=== PATIENT | female | born 1965 | race Caucasian/White ===

== ENCOUNTER 2016-09-02 09:58 | Day surgery (SDC) | payer BC ==
[2016-08-31 14:13] VITALS: BMI 29.7
[~2016-09-02 09:58] MED LIST: LACTATED RINGERS 1,000 ML IV SCH
[2016-09-02 10:56] VITALS: RESP 16; TEMP 98
[2016-09-02] MEDS ORDERED: LIDOCAINE 1% 20 ML VIAL (10MG/ML) FOR IV START INTRADERMA ONE (11:07)
[2016-09-02] MEDS ORDERED: PROPOFOL 10 MG/ML 20 ML VIAL IV ONE (11:39)
[2016-09-02] MEDS ORDERED: LIDOCAINE 1% INJ 10MG/ML (20 ML MDV) ONE (11:39)
[2016-09-02 12:18] VITALS: BP 118/80; PULSE 64
--- NOTE | 2016-09-02 12:18 | P.PCN ---
Date of Procedure: 09/02/16 Procedure(s) Performed: Procedure: Total colonoscopy. Preoperative diagnosis: Screening for neoplasia. Postoperative diagnosis: Exam within normal limits. Preparation: HalfLytely prep. Sedation: Was provided by anesthesia. Brief clinical history: The patient is a 51-year-old female who is referred for this evaluation for screening for neoplasia age being her risk factor. She has no significant abdominal symptoms, bleeding or anemia. She does have some tendency to constipation. No family history of colon cancer. This would be her first colonoscopy. Procedure: With the patient on her left lateral decubitus position and after informed consent and adequate sedation, the perianal area was inspected and it did not show any fissures or fistulas. There were no masses felt on digital rectal examination. The Olympus CFQ 160L video colonoscope was then inserted in the rectum in the usual fashion and advanced to the cecum. The mucosa appeared healthy. No polyps or tumors were seen or any obvious diverticular disease or other pathology. I retroflexed the endoscope in the rectum before the endoscope was withdrawn. The patient tolerated the procedure well. Plan: The patient was reassured. Discussed dietary measures regarding the occasional constipation issues she is having. In the absence of family history of colon cancer or finding of polyps today, I recommended repeat exam in 10 years. She will follow-up with you as planned.
== END 2016-09-02 12:36 | disposition home or self-care (01) ==
LOC: ORWHC2ENDO 09:58
DX: Z12.11 Encounter for screening for malignant neoplasm of colon (principal); K59.00 Constipation, unspecified
CPT/HCPCS: J2001; J2704; G0121; 45378

== ENCOUNTER → 2020-10-23 | Outpatient (CLI) | payer BC ==
--- NOTE | 2020-10-27 09:55 | MM ---
Reason for exam: screening (asymptomatic). Last mammogram was performed 5 years and 6 months ago. History: Patient is postmenopausal and had first child at age 34. Physical Findings: A clinical breast exam by your physician is recommended on an annual basis and results should be correlated with mammographic findings. MG 3D Screening Mammo W/Cad Bilateral CC and MLO view(s) were taken. Prior study comparison: May 08, 2015, bilateral MG screening mammo w CAD. August 22, 2012, bilateral digital screening mammo w/CAD. There are scattered fibroglandular densities. ASSESSMENT: Benign, BI-RAD 2 RECOMMENDATION: Routine screening mammogram of both breasts in 1 year.
== END | disposition home or self-care (01) ==
LOC: RADMAMWWP 13:36
PROVIDERS: ATTEND Internal Medicine Geriatric Medicine
DX: Z12.31 Encounter for screening mammogram for malignant neoplasm of breast (principal); Z78.0 Asymptomatic menopausal state
CPT/HCPCS: 77063; 77067

== ENCOUNTER → 2024-06-20 | Outpatient (CLI) | payer BC ==
--- NOTE | 2024-06-21 09:41 | MM ---
Reason for Exam: Screening (asymptomatic). Last mammogram was performed 3 year(s) and 8 month(s) ago. Patient History: Menarche at age 14. First Full-Term at age 34. Late child-bearing (after 30). Postmenopausal. Risk Values: Erum 5 year model risk: 1.7%. NCI Lifetime model risk: 9.6%. Prior Study Comparison: 08/22/2012 Bilateral Screening Mammogram, [facility]ED WITH [facility]. 05/08/2015 Bilateral Screening Mammogram, MERGED WITH [facility]. 10/23/2020 Bilateral Screening Mammogram, MERGED WITH [facility]. Tissue Density: There are scattered areas of fibroglandular density. Findings: Analyzed By CAD. Stable tiny benign-appearing linear calcifications in the right breast. Stable asymmetric tissue upper outer aspect left breast. There is no suspicious group of microcalcifications or new suspicious mass in either breast. Overall Assessment: Negative, BI-RAD 1 Management: Screening Mammogram of both breasts in 1 year. . Patient should continue monthly self-breast exams. A clinical breast exam by your physician is recommended on an annual basis. This exam should not preclude additional follow-up of suspicious palpable abnormalities. Note on Erum scores and lifetime risk: 1. A Erum score greater than 3% is considered moderate risk. If this is the case, consider specialist referral to assess eligibility for a risk reducing agent. 2. If overall lifetime risk for the development of breast cancer is 20% or higher, the patient may qualify for future screening with alternating mammogram and breast MRI. [facility], , 06/21/2024 9:38 AM. Electronically signed and approved by: Ricco Chavez M.D.
== END | disposition home or self-care (01) ==
LOC: RADMAMWWP 15:16
PROVIDERS: ATTEND Internal Medicine Geriatric Medicine
DX: Z12.31 Encounter for screening mammogram for malignant neoplasm of breast (principal); R92.323 Mammographic fibroglandular density, bilateral breasts; Z78.0 Asymptomatic menopausal state
CPT/HCPCS: 77063; 77067